=== PATIENT | female | born 1975 | race Caucasian/White ===

== ENCOUNTER 2017-07-17 19:44 | Inpatient (IN) | payer MEDICAID ==
[~2017-07-17] VITALS: Ht 162.6 cm; Wt 79.9 kg
[2017-07-17] MEDS ORDERED: TRAZ150T79 PO (21:08)
[2017-07-17] MEDS ORDERED: OXCA300T PO (21:08)
[2017-07-17] MEDS ORDERED: VARE1TAB22 PO (21:08)
[2017-07-17] MEDS ORDERED: QUET100T33 PO (21:08)
[2017-07-17] MEDS ORDERED: HYDR50CA6 PO (21:08)
[2017-07-17] MEDS ORDERED: MELA5TAB12 PO (21:08)
[2017-07-17 21:46] LABS: BASOPHILS # (AUTO) 0.08 K/uL (0.00-0.20); BASOPHILS % (AUTO) 0.7 % (0.0-2.0); EOSINOPHILS # (AUTO) 0.04 K/uL (0.00-0.70); EOSINOPHILS % (AUTO) 0.32 % (1.0-6.0); HEMATOCRIT 40.5 % (36-46); HEMOGLOBIN 13.6 g/dL (12.0-16.0); LYMPHOCYTES # (AUTO) 2.3 K/uL (1.0-4.8); LYMPHOCYTES % (AUTO) 19.8 % (22.0-44.0); MEAN CORPUSCULAR HEMOGLOBIN 31.1 pg (26.0-34.0); MEAN CORPUSCULAR HGB CONC 33.6 G/dL (31.0-37.0); MEAN CORPUSCULAR VOLUME 93 fL (80-100); MONOCYTES # (AUTO) 0.5 K/uL (0.1-1.0); MONOCYTES % (AUTO) 4.1 % (2.0-9.0); NEUTROPHILS # (AUTO) 8.7 K/uL (1.8-7.7); NEUTROPHILS % (AUTO) 75.1 % (40.0-70.0); PLATELET COUNT (AUTO) 281 K/uL (150-450); RED BLOOD CELL COUNT(AUTO) 4.37 MIL/uL (4.00-5.20); RED CELL DISTRIBUTION WIDTH 12.8 % (11.5-14.5)
[2017-07-17 21:53] LABS: ANION GAP 7 mmol/L (8-16); CALCIUM, TOTAL 8.7 mg/dL (8.8-10.5); CARBON DIOXIDE 28 mmol/L (22-29); CHLORIDE 101 mmol/L (98-107); CREATININE 1.21 mg/dL (0.60-1.30); GLOMERULAR FILTR. RATE CALC 49 mL/min (>60); GLUCOSE,RANDOM 110 mg/dL (70-110); POTASSIUM 4.1 mmol/L (3.5-5.1); SODIUM SERUM 136 mmol/L (136-145); UREA NITROGEN, BLOOD 7 mg/dL (7-18)
[2017-07-17 21:58] LABS: ALANINE AMINOTRANSFERASE 16 U/L (12-78); ALBUMIN 3.6 g/dL (3.4-5.0); ALKALINE PHOSPHATASE 59 U/L (46-116); ASPARTATE AMINOTRANSFERASE 13 U/L (15-37); BILIRUBIN,TOTAL 0.3 mg/dL (0.1-1.0); TOTAL PROTEIN, SERUM 7.1 g/dL (6.4-8.2)
[2017-07-18 01:43] VITALS: BP 120/66
[2017-07-18 08:53] VITALS: BP 101/75
[2017-07-18] MEDS ORDERED: IBUPROFEN 600 MG TABLET PO PRN (10:45)
[2017-07-18] MEDS: LORazepam 2 MG TABLET PO PRN (13:19)
[2017-07-18] MEDS: ACETAMINOPHEN 325 MG TABLET PO PRN (13:19)
[2017-07-18 17:39] VITALS: BP 112/62
[2017-07-18] MEDS: TraZODone HCL 100 MG TABLET PO SCH (21:22)
[2017-07-18] MEDS: MIRTAZAPINE 15 MG TABLET PO SCH (21:23)
[2017-07-18] MEDS: QUEtiapine FUMARATE 300 MG TABLET PO SCH (21:23)
[2017-07-19 07:49] LABS: FREE T4 (FREE THYROXINE) 0.75 ng/dL (0.76-1.46); THYROID STIMULATING HORMONE 1.48 uIU/mL (0.36-3.74)
[2017-07-19 08:28] VITALS: BP 106/69
[2017-07-19 09:55] VITALS: BP 121/75
[2017-07-19] MEDS: QUEtiapine FUMARATE 300 MG TABLET PO SCH ×2 (09:57→21:58)
[2017-07-19] MEDS: ACETAMINOPHEN 325 MG TABLET PO PRN (09:58)
[2017-07-19] MEDS: LORazepam 2 MG TABLET PO PRN (09:58)
[2017-07-19 17:11] VITALS: BP 112/76
[2017-07-19] MEDS: MIRTAZAPINE 15 MG TABLET PO SCH (21:58)
[2017-07-19] MEDS: TraZODone HCL 100 MG TABLET PO SCH (21:58)
[2017-07-20 08:53] VITALS: BP 107/60
[2017-07-20] MEDS: QUEtiapine FUMARATE 300 MG TABLET PO SCH ×2 (09:31→21:06)
[2017-07-20] MEDS: LORazepam 2 MG TABLET PO PRN ×2 (09:46→20:49)
[2017-07-20] MEDS: ACETAMINOPHEN 325 MG TABLET PO PRN (09:46)
[2017-07-20 16:48] VITALS: BP 100/67
[2017-07-20] MEDS: TraZODone HCL 100 MG TABLET PO SCH (21:06)
[2017-07-20] MEDS: MIRTAZAPINE 15 MG TABLET PO SCH (21:06)
[2017-07-21] MEDS: QUEtiapine FUMARATE 300 MG TABLET PO SCH ×2 (09:58→21:52)
[2017-07-21 11:00] VITALS: BP 132/69
[2017-07-21] MEDS ORDERED: HydrOXYzine PAMOATE 25 MG CAPSULE PO PRN (13:00)
[2017-07-21] MEDS: LORazepam 2 MG TABLET PO PRN (16:54)
[2017-07-21 20:31] VITALS: BP 100/60
[2017-07-21] MEDS: TraZODone HCL 100 MG TABLET PO SCH (21:52)
[2017-07-21] MEDS: MIRTAZAPINE 15 MG TABLET PO SCH (21:52)
[2017-07-22 09:00] VITALS: BP 110/78
[2017-07-22] MEDS: QUEtiapine FUMARATE 300 MG TABLET PO SCH ×2 (09:21→20:23)
[2017-07-22] MEDS: LORazepam 2 MG TABLET PO PRN ×2 (09:21→18:56)
[2017-07-22 19:13] VITALS: BP 103/59
[2017-07-22] MEDS: MIRTAZAPINE 15 MG TABLET PO SCH (20:23)
[2017-07-22] MEDS: TraZODone HCL 100 MG TABLET PO SCH (20:23)
[2017-07-22] MEDS: ZOLPIDEM TARTRATE 10 MG TABLET PO PRN (21:05)
[2017-07-23] MEDS: QUEtiapine FUMARATE 300 MG TABLET PO SCH ×2 (09:06→20:17)
[2017-07-23] MEDS: LORazepam 2 MG TABLET PO PRN (09:07)
[2017-07-23 09:17] VITALS: BP 103/78
[2017-07-23] MEDS: HALOPERIDOL 5 MG TABLET PO PRN (14:16)
[2017-07-23 16:00] VITALS: BP 90/59
[2017-07-23] MEDS: MIRTAZAPINE 15 MG TABLET PO SCH (20:17)
[2017-07-23] MEDS: TraZODone HCL 100 MG TABLET PO SCH (20:17)
[2017-07-24 09:14] VITALS: BP 94/61
[2017-07-24] MEDS: QUEtiapine FUMARATE 300 MG TABLET PO SCH ×2 (10:03→21:38)
[2017-07-24] MEDS ORDERED: MIRT15 PO (11:30)
[2017-07-24] MEDS ORDERED: QUET300T2 PO (11:37)
[2017-07-24] MEDS ORDERED: TRAZ-147 PO (11:37)
[2017-07-24] MEDS: HALOPERIDOL 5 MG TABLET PO PRN ×3 (12:11→23:48)
[2017-07-24 17:54] VITALS: BP 98/63
[2017-07-24] MEDS: MIRTAZAPINE 15 MG TABLET PO SCH (21:38)
[2017-07-24] MEDS: TraZODone HCL 100 MG TABLET PO SCH (21:39)
[2017-07-24 23:40] VITALS: BP 101/62
[2017-07-24] MEDS: ZOLPIDEM TARTRATE 10 MG TABLET PO PRN (23:48)
[2017-07-25 08:15] VITALS: BP 109/59
[2017-07-25] MEDS: QUEtiapine FUMARATE 300 MG TABLET PO SCH (09:14)
== END 2017-07-25 10:45 | disposition home or self-care (01) | DRG 751 ==
LOC: EMS 19:47 → 3EI 07-18 00:20
PROVIDERS: ADMIT Psychiatry & Neurology Psychiatry; ATTEND Psychiatry & Neurology Psychiatry
DX: F33.2 Major depressive disorder, recurrent severe without psychotic features (principal); R45.851 Suicidal ideations; F41.9 Anxiety disorder, unspecified; F17.210 Nicotine dependence, cigarettes, uncomplicated; M54.2 Cervicalgia; D72.828 Other elevated white blood cell count; Z91.5 Personal history of self-harm; Z59.0 Homelessness; Z98.1 Arthrodesis status; Z82.49 Family history of ischemic heart disease and other diseases of the circulatory system; Z79.899 Other long term (current) drug therapy; Z80.0 Family history of malignant neoplasm of digestive organs; Z83.3 Family history of diabetes mellitus
CPT/HCPCS: 84439; 84443; 87081; 99285; G0480